=== PATIENT | male | born 1940 | race Caucasian/White ===

== ENCOUNTER 2016-05-25 15:49 | Inpatient (IN) | payer OTHER, BC ==
[~2016-05-25] VITALS: Ht 175.3 cm; Wt 83.5 kg
[2016-05-25] VITALS (7 sets, daily range): BP systolic 163–195; BP diastolic 80–120
[~2016-05-25 15:49] MED LIST: ADVIL,NUPRIN,M200 MG PO; ASPIR-TRIN325 M1 PO; ASPIRIN BUFFER325 MG PO; CARDIZEM30 MG PO; COLACE100 MG PO; COREG25 M1 PO; COSOPT PF EYE1 EACH BOTH EYES; DIGOX250 MCG PO; DIOVAN320 MG PO; LOPID600 MG PO; LUMIGAN 0.50 DROP/22 RIGHT EYE; TAMIFLU30 MG PO; VENTOLIN HFA18 GM IH; XARELTO20 MG PO; ZETIA10 MG PO; ZYLOPRIM300 MG PO
[2016-05-25 17:54] LABS: EOSINOPHIL (%) 1.3 % (0-5); EOSINOPHIL COUNT 0.2 K/uL (0-0.3); HEMATOCRIT 38.6 % (38.0-50.0); IMMATURE GRANULOCYTE (%) 0.3 % (0.0-0.7); IMMATURE GRANULOCYTE COUNT 0.4 K/uL; LYMPHOCYTE COUNT 1.3 K/uL (1.0-2.8); MCH 31.3 PG (29.0-34.0); MCHC 33.9 G/DL (30.0-36.0); MCV 92.3 FL (86-99); MEAN PLAT.VOLUME 12.5 uM^3 (9.0-12.4); MONOCYTE COUNT 0.7 K/uL (0-0.8); NEUTROPHIL (%) 81.3 % (45-76); NEUTROPHIL COUNT 9.7 K/uL (1.8-6.4); PLATELET COUNT 163 K/uL (156-360); RBC DIS.WIDTH-CV 13.5 % (11.8-14.6); RBC DIS.WIDTH-SD 44.5 % (39-53); RED BLOOD COUNT 4.18 M/uL (4.00-5.50)
[2016-05-25 18:06] LABS: CHLORIDE 106 mEq/L (99-109); POTASSIUM 5.2 mEq/L (3.7-5.4); SODIUM 138 mEq/L (136-147)
[2016-05-25 18:08] LABS: GLUCOSE 159 mg/dL (70-99)
[2016-05-25 18:10] LABS: ANION GAP 7 MEQ/L (2-14)
[2016-05-25 18:12] LABS: GFR ESTIMATE (CALCULATED) 57 mL/min/
[2016-05-25 18:13] LABS: UREA NITROGEN (BUN) 23 mg/dL (9-23)
[2016-05-25 18:14] LABS: CREATINE KINASE 149 IU/L (1-294); TOTAL CK 149 IU/L (1-294)
[2016-05-25 18:20] LABS: CK-MB 2.7 ng/mL (0.0-4.9)
[2016-05-25] MEDS ORDERED: ASPIRIN EC325 MG PO (20:31)
[2016-05-25] MEDS ORDERED: COSOPT EYE DROPS5 ML BOTH EYES (20:31)
[2016-05-25] MEDS ORDERED: CINNAMON500 MG PO (20:32)
[2016-05-26 04:20] VITALS: BP 149/72
[2016-05-26 08:25] VITALS: BP 164/77
[2016-05-26 11:46] VITALS: BP 172/77
[2016-05-26] MEDS ORDERED: OXYCODONE HCL5 MG PO (12:47)
== END 2016-05-26 15:14 | disposition home or self-care (01) | DRG 563 ==
LOC: EME → EDBD 15:49 → EME 15:49 → EDOF 20:20 → 3EAST 20:20
PROVIDERS: Emergency Medicine
PROC: 2W3QX1Z Immobilization of Right Lower Leg using Splint (ICD-10-PCS; principal; 2016-05-25)
DX: S82.431A Displaced oblique fracture of shaft of right fibula, initial encounter for closed fracture (principal); S82.251A Displaced comminuted fracture of shaft of right tibia, initial encounter for closed fracture; I10 Essential (primary) hypertension; I25.10 Atherosclerotic heart disease of native coronary artery without angina pectoris; I48.91 Unspecified atrial fibrillation; E78.5 Hyperlipidemia, unspecified; Z95.1 Presence of aortocoronary bypass graft; Z95.5 Presence of coronary angioplasty implant and graft; W11.XXXA Fall on and from ladder, initial encounter; Y93.9 Activity, unspecified; Y92.007 Garden or yard of unspecified non-institutional (private) residence as the place of occurrence of the external cause
CPT/HCPCS: 73590; 80048; 82550; 82553; 85025; 93005; 99281; 99285; J2405; J3010; J7120

== ENCOUNTER 2017-10-31 09:28 | Observation (INO) | payer OTHER, BC ==
[~2017-10-31] VITALS: Ht 175.3 cm; Wt 79.5 kg
[~2017-10-31 09:28] MED LIST changes: +ASPIRIN EC325 MG PO; +CINNAMON500 MG PO; +COSOPT EYE DROPS5 ML BOTH EYES; +OXYCODONE HCL5 MG PO
[2017-10-31 10:32] LABS: BASOPHIL (%) 0.6 % (0-1); EOSINOPHIL COUNT 0.1 K/uL (0-0.3); HEMATOCRIT 40.9 % (38.0-50.0); HEMOGLOBIN 13.4 G/DL (12.5-16.6); IMMATURE GRANULOCYTE (%) 0.4 % (0.0-0.7); LYMPHOCYTE (%) 18.9 % (15-42); MCH 30.7 PG (29.0-34.0); MCHC 32.8 G/DL (30.0-36.0); MCV 93.6 FL (86-99); MONOCYTE (%) 11.5 % (3-12); MONOCYTE COUNT 0.6 K/uL (0-0.8); NEUTROPHIL (%) 66.6 % (45-76); NEUTROPHIL COUNT 3.4 K/uL (1.8-6.4); PLATELET COUNT 111 K/uL (156-360); RBC DIS.WIDTH-CV 13.7 % (11.8-14.6); RBC DIS.WIDTH-SD 47.3 % (39-53); RED BLOOD COUNT 4.37 M/uL (4.00-5.50); WHITE BLOOD COUNT 5.1 K/uL (4.1-10.2)
[2017-10-31 10:40] LABS: INTER. NORMALIZED RATIO 2.2
[2017-10-31 11:12] LABS: TROP-I INTERPRETATION NEGATIVE; TROPONIN-I 0.03 ng/mL (0.0-0.30)
[2017-10-31 11:13] LABS: CHLORIDE 106 MEQ/L (99-109); CREATININE 1.5 MG/DL (0.6-1.3); GFR ESTIMATE (CALCULATED) 48 mL/min/ (58.99-99999); GLUCOSE 124 mg/dL (70-99); POTASSIUM 4.8 MEQ/L (3.7-5.4); SODIUM 138 MEQ/L (136-147); UREA NITROGEN (BUN) 33 mg/dL (9-23)
[2017-10-31] MEDS ORDERED: DIOVAN80 MG PO (11:32)
[2017-10-31] MEDS ORDERED: CHILD ASPIRIN81 M1 PO (11:33)
[2017-10-31] MEDS ORDERED: XARELTO20 MG PO (11:35)
[2017-10-31 11:40] LABS: DIGOXIN 0.4 ng/mL (0.8-2.0)
[2017-10-31] MEDS ORDERED: TYLENOL EXTRA500 MG PO (13:08)
[2017-10-31 13:37] VITALS: BP 175/100
[2017-10-31 17:56] VITALS: BP 160/85
[2017-10-31 19:38] VITALS: BP 155/98
[2017-11-01] VITALS: BP 151/93
[2017-11-01 04:16] VITALS: BP 134/68
[2017-11-01 07:39] VITALS: BP 160/87
[2017-11-01 09:18] LABS: INTER. NORMALIZED RATIO 2.1
[2017-11-01 09:26] LABS: CHLORIDE 105 MEQ/L (99-109); GFR ESTIMATE (CALCULATED) > 59 mL/min/ (58.99-99999); GLUCOSE 135 mg/dL (70-99); POTASSIUM 4.4 MEQ/L (3.7-5.4); SODIUM 136 MEQ/L (136-147); UREA NITROGEN (BUN) 19 mg/dL (9-23)
[2017-11-01 11:02] VITALS: BP 156/88
== END 2017-11-01 13:28 | disposition home or self-care (01) ==
LOC: EME 09:28 → EDOF 11:55 → 4SOUTH 11:55 → ENRESERV 11:58 → 4SOUTH 13:16
PROVIDERS: Emergency Medicine; Physician Assistant
DX: R55 Syncope and collapse (principal); N17.9 Acute kidney failure, unspecified; I25.10 Atherosclerotic heart disease of native coronary artery without angina pectoris; Z95.5 Presence of coronary angioplasty implant and graft; Z95.1 Presence of aortocoronary bypass graft; I10 Essential (primary) hypertension; I48.2 Chronic atrial fibrillation; Z79.01 Long term (current) use of anticoagulants; Z66 Do not resuscitate; E78.5 Hyperlipidemia, unspecified; Z82.49 Family history of ischemic heart disease and other diseases of the circulatory system; Z79.82 Long term (current) use of aspirin
CPT/HCPCS: 71046; 80048; 80162; 84484; 85025; 85610; 93005; 99281; 99284; G0378; J0360; J7030

== ENCOUNTER 2017-11-11 03:14 | Inpatient (IN) | payer OTHER, BC ==
[~2017-11-11] VITALS: Ht 175.3 cm; Wt 79.3 kg
[2017-11-11] VITALS (7 sets, daily range): BP systolic 131–183; BP diastolic 62–117
[~2017-11-11 03:14] MED LIST changes: +CHILD ASPIRIN81 M1 PO; +DIOVAN80 MG PO; +TYLENOL EXTRA500 MG PO
[2017-11-11 03:41] LABS: ALBUMIN 4.1 g/dL (3.2-4.8); CHLORIDE 105 mEq/L (99-109); POTASSIUM 5.2 mEq/L (3.7-5.4); SODIUM 136 mEq/L (136-147)
[2017-11-11 03:42] LABS: MAGNESIUM 2.5 mg/dL (1.3-2.7)
[2017-11-11 03:43] LABS: GLUCOSE 204 mg/dL (70-99)
[2017-11-11 03:45] LABS: TOTAL BILIRUBIN 1.2 mg/dL (0.0-1.0)
[2017-11-11 03:47] LABS: ALKALINE PHOSPHATASE 151 IU/L (3-129); CREATININE 1.5 mg/dL (0.6-1.3); GFR ESTIMATE (CALCULATED) 48 mL/min/ (58.99-99999); PTT 39.9 SEC (25-37)
[2017-11-11 03:48] LABS: HEMATOCRIT 41.8 % (38.0-50.0); HEMOGLOBIN 13.1 G/DL (12.5-16.6); MCH 30.5 PG (29.0-34.0); MCHC 31.3 G/DL (30.0-36.0); MCV 97.2 FL (86-99); PLATELET COUNT 105 K/uL (156-360); RBC DIS.WIDTH-SD 50.2 % (39-53); UREA NITROGEN (BUN) 25 mg/dL (9-23); WHITE BLOOD COUNT 5.7 K/uL (4.1-10.2)
[2017-11-11 03:49] LABS: AST (GOT) 30 IU/L (2-34)
[2017-11-11 03:50] LABS: ALT (GPT) 25 IU/L (3-49)
[2017-11-11 03:56] LABS: DIGOXIN 0.6 ng/mL (0.8-2.0); TROP-I INTERPRETATION NEGATIVE; TROPONIN-I 0.03 ng/mL (0.0-0.30)
[2017-11-11 03:58] LABS: INTER. NORMALIZED RATIO 3.6
[2017-11-11 04:36] LABS: SITE RB
[2017-11-11 04:37] LABS: BASE EXCESS -11.8 mEq/L (-3 to +3); BICARBONATE 14.6 mEq/L (22-26); CARBOXY HGB 1.7 % (0-5); DEVICE VENT; FI02 100 %; MECHANICAL RATE 16 resp/min; METHEMOGLOBIN 0.7 % (0-1.5); MODE AC; PCO2 34 mm Hg (35-45); PEEP 5 CM/H20; PO2 309 mm Hg (80-100); TIDAL VOLUME 500 ML; TOTAL RESP RATE 16 resp/min; pH 7.24 (7.35-7.45)
[2017-11-11 04:38] LABS: COMMENTS - BLOOD GASES C+ DR IS AWARE
[2017-11-11 06:09] LABS: O2 SATURATION (CALCULATED) 98.9 % (95-99); PCO2 35 mm Hg (35-45); PO2 115 mm Hg (80-100); pH 7.39 (7.35-7.45)
[2017-11-11 06:10] LABS: BASE EXCESS -3.1 mEq/L (-3 to +3); BICARBONATE 21.2 mEq/L (22-26); CARBOXY HGB 1.5 % (0-5); COMMENTS - BLOOD GASES C+; DEVICE VENTILATOR; FI02 50 %; MECHANICAL RATE 16 resp/min; METHEMOGLOBIN 0.7 % (0-1.5); MODE AC; PEEP 5 CM/H20; SITE RB; TIDAL VOLUME 500 ML; TOTAL RESP RATE 16 resp/min
[2017-11-11 07:36] LABS: CHLORIDE 108 MEQ/L (99-109); SODIUM 139 MEQ/L (136-147)
[2017-11-11 07:41] LABS: CREATININE 1.3 MG/DL (0.6-1.3); GFR ESTIMATE (CALCULATED) 57 mL/min/ (58.99-99999); GLUCOSE 173 mg/dL (70-99); TRIGLYCERIDES 49 MG/DL (Normal: <150); UREA NITROGEN (BUN) 23 mg/dL (9-23)
[2017-11-11 09:39] LABS: CREATINE KINASE 57 IU/L (1-294)
[2017-11-11 11:34] LABS: TROP-I INTERPRETATION NEGATIVE
[2017-11-11 19:37] LABS: TROP-I INTERPRETATION NEGATIVE; TROPONIN-I 0.13 ng/mL (0.0-0.30)
[2017-11-12] VITALS (7 sets, daily range): BP systolic 143–167; BP diastolic 79–91
[2017-11-12 02:46] LABS: TROP-I INTERPRETATION NEGATIVE
[2017-11-12 04:34] LABS: HEMATOCRIT 39.9 % (38.0-50.0); HEMOGLOBIN 13.1 G/DL (12.5-16.6); MCH 30.5 PG (29.0-34.0); MCHC 32.8 G/DL (30.0-36.0); PLATELET COUNT 115 K/uL (156-360); RBC DIS.WIDTH-CV 13.9 % (11.8-14.6); RBC DIS.WIDTH-SD 47.1 % (39-53); WHITE BLOOD COUNT 8.5 K/uL (4.1-10.2)
[2017-11-12 04:35] LABS: MCV 92.8 FL (86-99)
[2017-11-12 04:42] LABS: ALBUMIN 3.8 g/dL (3.2-4.8); CHLORIDE 107 mEq/L (99-109); POTASSIUM 4.3 mEq/L (3.7-5.4); SODIUM 139 mEq/L (136-147)
[2017-11-12 04:45] LABS: TOTAL PROTEIN 6.4 g/dL (6.4-8.3)
[2017-11-12 04:48] LABS: ALKALINE PHOSPHATASE 126 IU/L (3-129); CREATININE 1.1 mg/dL (0.6-1.3); GFR ESTIMATE (CALCULATED) > 59 mL/min/ (58.99-99999)
[2017-11-12 04:49] LABS: UREA NITROGEN (BUN) 21 mg/dL (9-23)
[2017-11-12 04:50] LABS: AST (GOT) 40 IU/L (2-34); GLUCOSE 104 mg/dL (70-99); TOTAL BILIRUBIN 1.8 mg/dL (0.0-1.0)
[2017-11-12 04:51] LABS: ALT (GPT) 34 IU/L (3-49)
[2017-11-12 10:03] LABS: INTER. NORMALIZED RATIO 1.9
[2017-11-12 10:04] LABS: PTT 37.5 SEC (25-37)
[2017-11-13] VITALS (15 sets, daily range): BP systolic 123–170; BP diastolic 74–99
[2017-11-13 04:56] LABS: INTER. NORMALIZED RATIO 1.5
[2017-11-13 04:58] LABS: PTT 31.8 SEC (25-37)
[2017-11-14] VITALS (13 sets, daily range): BP systolic 121–191; BP diastolic 71–97
[2017-11-14] MEDS ORDERED: ASPIRIN81 M2 PO (15:36)
[2017-11-14] MEDS ORDERED: XARELTO20 MG PO (15:41)
== END 2017-11-14 16:05 | disposition home or self-care (01) | DRG 242 ==
LOC: EME → EDBD 03:14 → ENRESERV 04:16 → EME 05:12 → CATH 05:12 → 4WEST 05:49
PROVIDERS: Emergency Medicine; Internal Medicine Cardiovascular Disease; Surgery
PROC: 0BH17EZ Insertion of Endotracheal Airway into Trachea, Via Natural or Artificial Opening (ICD-10-PCS; principal; 2017-11-11)
PROC: 5A1935Z Respiratory Ventilation, Less than 24 Consecutive Hours (ICD-10-PCS; principal; 2017-11-11)
PROC: 5A1223Z Performance of Cardiac Pacing, Continuous (ICD-10-PCS; 2017-11-11)
PROC: 03HY32Z Insertion of Monitoring Device into Upper Artery, Percutaneous Approach (ICD-10-PCS; 2017-11-11)
PROC: 0JH605Z Insertion of Pacemaker, Single Chamber Rate Responsive into Chest Subcutaneous Tissue and Fascia, Open Approach (ICD-10-PCS; 2017-11-13)
PROC: 02HK3JZ Insertion of Pacemaker Lead into Right Ventricle, Percutaneous Approach (ICD-10-PCS; 2017-11-13)
DX: I49.5 Sick sinus syndrome (principal); R57.0 Cardiogenic shock; J96.01 Acute respiratory failure with hypoxia; E87.2 Acidosis; I11.0 Hypertensive heart disease with heart failure; I50.9 Heart failure, unspecified; I95.1 Orthostatic hypotension; I25.810 Atherosclerosis of coronary artery bypass graft(s) without angina pectoris; I48.2 Chronic atrial fibrillation; I48.92 Unspecified atrial flutter; I25.2 Old myocardial infarction; E78.5 Hyperlipidemia, unspecified; Z79.01 Long term (current) use of anticoagulants; Z95.5 Presence of coronary angioplasty implant and graft; Z95.1 Presence of aortocoronary bypass graft; M10.9 Gout, unspecified; R23.0 Cyanosis
CPT/HCPCS: 36600; 71045; 80047; 80048 91; 80053; 80162; 81003; 82150; 82550 91; 82948; 83605; 83690; 83735; 83880; 84478; 84484; 85025; 85027; 85610; 85730; 86850; 86900; 86901; 87070; 87205; 87641; 93005; 94002; 94640; 94799; 99281; 99285; C1786; C1894; C1898; G0480; J0360; J0461; J0690; J1265; J2250; J2405; J2704; J3010; J7030; S0020; S0028